=== PATIENT | female | born 1975 | race Caucasian/White ===

== ENCOUNTER 2016-08-08 20:46 | Emergency (ER) | payer BC, MEDICAID ==
[~2016-08-08] VITALS: Ht 154.9 cm; Wt 88.0 kg
[~2016-08-08 20:46] MED LIST: IBUP-1542 PO; PRED20TA PO
[2016-08-08 20:59] VITALS: Ht 154.9 cm; Wt 88.0 kg
[2016-08-08 21:54] LABS: ADD SCAN DIFF NO
[2016-08-08 21:59] LABS: BASOPHILS % 0.2 % (0.0-2.0); EOSINOPHILS # 0.1 10^3/ul (0.0-0.5); EOSINOPHILS % 1.4 % (0.0-7.0); HEMATOCRIT 31.4 % (37.0-47.0); HEMOGLOBIN 10.1 g/dl (12.0-16.0); LYMPHOCYTES # 2.6 10^3/ul (0.8-2.9); LYMPHOCYTES % 26.3 % (15.0-51.0); MEAN CORPUSCULAR HEMOGLOBIN 25.8 pg (29.0-33.0); MEAN CORPUSCULAR HGB CONC 32.2 g/dl (32.0-37.0); MEAN CORPUSCULAR VOLUME 80.1 fl (82.0-101.0); MEAN PLATELET VOLUME 9.3 fl (7.4-10.4); MONOCYTE # 0.5 10^3/ul (0.3-0.9); MONOCYTES % 4.8 % (0.0-11.0); NEUTROPHIL # 6.7 10^3/ul (1.6-7.5); NEUTROPHILS % 66.9 % (39.0-77.0); PLATELET COUNT 318 10^3/UL (140-415); RED BLOOD COUNT 3.92 10^6/ul (4.20-5.40)
[2016-08-08 22:15] LABS: INR 0.99; PROTIME 13.1 Sec (12.2-14.2)
[2016-08-08 22:16] LABS: PARTIAL THROMBOPLASTIN TIME 29.2 Sec (25.0-35.0)
[2016-08-08 22:17] LABS: CALCIUM 8.8 mg/dl (8.4-10.2); CREATININE 0.65 mg/dl (0.44-1.00); POTASSIUM 4.2 mmol/L (3.5-5.1)
--- NOTE | 2016-08-09 00:24 | ERA ---
ER Documentation Chief Complaint Date/Time DATE: 08/09/16 TIME: 00:24 Chief Complaint VAG BLEED X 28 DAYS WITH VERY HEAVY BLEEDING X 2-3 DAYS HPI This is a 41-year-old female heavy vaginal bleeding for 28 days. She is a vitamin for the past 2-3 days. No nausea no vomiting fevers or chills. No other current complaints. Patient has not seen her OB. ROS All systems reviewed and are negative except as per history of present illness. Medications Home Meds Active Scripts Ibuprofen* (Ibuprofen*) 600 Mg Tablet, 600 MG PO TID for PAIN AND/OR INFLAMMATION, #30 TAB Prov:SHALINI BOND MD 07/28/15 Prednisone* (Prednisone*) 20 Mg Tab, 20 MG PO BID for 3 Days, TAB Prov:SHALINI BOND MD 07/28/15 Allergies Allergies: Coded Allergies: No Known Allergy (Unverified , 07/28/15) PMhx/Soc History of Surgery: Yes (RT OVARIAN CYST, APPY, TONSILLECTOMY ) Anesthesia Reaction: No Hx Neurological Disorder: No Hx Respiratory Disorders: No Hx Cardiac Disorders: Yes (HTN ) Hx Psychiatric Problems: No Hx Miscellaneous Medical Probl: No Hx Alcohol Use: No Hx Substance Use: No Hx Tobacco Use: No Smoking Status: Never smoker Physical Exam Vitals Vital Signs Date Time Temp Pulse Resp B/P Pulse Ox O2 Delivery O2 Flow Rate FiO2 08/08/16 23:29 95 19 149/97 100 Room Air 08/08/16 21:54 98.0 79 18 174/102 100 Room Air 08/08/16 20:59 97.3 102 18 182/106 98 Physical Exam Const: [] Head: Atraumatic Eyes: Normal Conjunctiva ENT: Normal External Ears, Nose and Mouth. Neck: Full range of motion..~ No meningismus. Resp: Clear to auscultation bilaterally Cardio: Regular rate and rhythm, no murmurs Abd: Soft, non tender, non distended. Normal bowel sounds Skin: No petechiae or rashes Back: No midline or flank tenderness Ext: No cyanosis, or edema Neur: Awake and alert Psych: Normal Mood and Affect Result Diagram: 08/08/16214708/08/162147 Results 24 hrs Laboratory Tests Test 08/08/16 21:48 White Blood Count 10.010^3/ul Red Blood Count 3.9210^6/ul Hemoglobin 10.1g/dl Hematocrit 31.4% Mean Corpuscular Volume 80.1fl Mean Corpuscular Hemoglobin 25.8pg Mean Corpuscular Hemoglobin Concent 32.2g/dl Red Cell Distribution Width 14.0% Platelet Count 07247^3/UL Mean Platelet Volume 9.3fl Neutrophils % 66.9% Lymphocytes % 26.3% Monocytes % 4.8% Eosinophils % 1.4% Basophils % 0.2% Nucleated Red Blood Cells % 0.0/100WBC Neutrophils # 6.710^3/ul Lymphocytes # 2.610^3/ul Monocytes # 0.510^3/ul Eosinophils # 0.110^3/ul Basophils # 0.010^3/ul Nucleated Red Blood Cells # 0.010^3/ul Prothrombin Time 13.1Sec Prothrombin Time Ratio 1.0 INR International Normalized Ratio 0.99 Activated Partial Thromboplast Time 29.2Sec Sodium Level 142mmol/L Potassium Level 4.2mmol/L Chloride Level 107mmol/L Carbon Dioxide Level 25mmol/L Anion Gap 14 Blood Urea Nitrogen 12mg/dl Creatinine 0.65mg/dl Glucose Level 153mg/dl Calcium Level 8.8mg/dl Serum HCG, Qualitative NEGATIVE Procedures/MDM Ultrasound shows thickened endometrium. Medical decision-makin-year-old female with vaginal bleeding. Patient was placed on OCPs and told to follow-up with [employer]. No evidence of anemia at this time. Patient to return for worsening symptoms. Departure Diagnosis: Primary Impression: Vaginal bleeding Condition: Stable GIL PARKS Aug 09, 2016 00:24
--- NOTE | 2016-08-09 00:41 | RADRPT ---
PROCEDURE: US Pelvis. CLINICAL INDICATION: Vaginal bleeding TECHNIQUE: Multiple sonographic images of the pelvis were obtained utilizing a transabdominal and endovaginal technique. The images were reviewed on a PACS workstation. COMPARISON: None available FINDINGS: Uterus: Normal in size, contour and echogenicity with no evidence for myometrial masses. Size is est imated at 7 x 5.9 x 4.4 cm. Cervix: No abnormalities of significance are seen. Endometrium: Increased in thickness; 15.6 mm. Normal blood flow on Doppler interrogation, the findi ngs likely related to the patients phase of menstruation Right ovary / adnexa: Normal in size estimated at 3.1 x 2.4 x 2.2 cm. No evidence for masses, norm al blood flow on Doppler interrogation. Left ovary/adnexa: Normal in size estimated at 4.6 x 3.8 x 3.4 cm. No evidence for solid masses, no rmal blood flow on Doppler interrogation. Simple anechoic cyst is present estimated at 3.4 x 3.1 x 2 .6 cm Cul-de-sac: No evidence of free fluid. RPTAT:HJJR IMPRESSION: 1. Endometrial thickness of 15.6 mm likely is related to the patients phase of menstruation. No en dometrial or myometrial mass identified. 2. Simple anechoic left ovarian cyst of 3.4 cm. Physician Anju Date Time Electronically viewed and signed by Physician Anju on 08/09/2016 00:41 /
[2016-08-09] MEDS ORDERED: MEDR10TA2 PO (01:02)
[2016-08-09 01:22] VITALS: BP 149/97; PULSE 93; RESP 20; TEMP 97.9
== END 2016-08-09 01:30 | disposition home or self-care (01) ==
LOC: E/R 20:46
DX: N93.9 Abnormal uterine and vaginal bleeding, unspecified (principal); I10 Essential (primary) hypertension; R10.2 Pelvic and perineal pain
CPT/HCPCS: 36415; 76830; 76856; 80048; 84703; 85025; 85610; 85730; Z7502

== ENCOUNTER 2017-10-17 17:48 | Emergency (ER) | END 2017-10-17 20:22 | disposition home or self-care (01) ==

== ENCOUNTER 2017-11-01 18:22 | Emergency (ER) | END 2017-11-01 20:02 | disposition home or self-care (01) ==